=== PATIENT | male | born 1965 | race Caucasian/White ===

== ENCOUNTER 2024-03-10 15:57 | Emergency (ER) | payer MEDICAID ==
[~2024-03-10] VITALS: Ht 170.2 cm; Wt 69.0 kg
[2024-03-10 16:16] VITALS: BP 133/68; PULSE 75; O2SAT 95
[2024-03-10 16:58] VITALS: RESP 16; TEMP 98.5
== END 2024-03-10 17:00 | disposition home or self-care (01) ==
LOC: ER 15:57
DX: S05.31XD Ocular laceration without prolapse or loss of intraocular tissue, right eye, subsequent encounter (principal); X58.XXXD Exposure to other specified factors, subsequent encounter
CPT/HCPCS: 99281